=== PATIENT | female | born 1985 ===

== ENCOUNTER 2017-02-15 12:43 | Emergency (ER) | payer MEDICAID ==
[2017-02-15 12:43] VITALS: BMI 21.9
[2017-02-15 12:49] VITALS: BP 118/72; PULSE 67; RESP 20; TEMP 97.7; O2SAT 98
--- NOTE | 2017-02-15 13:53 | ED PDOC ---
HPI: Skin/Bite Injury Time Seen by Provider: 02/15/17 12:47 Chief Complaint (Nursing): Abnormal Skin Integrity Chief Complaint (Provider): Rash History Per: Patient History/Exam Limitations: no limitations Onset/Duration Of Symptoms: Days (x2 weeks) Current Symptoms Are (Timing): Still Present Location Of Injury: Right: Arm (forearm, medial upper arm) Quality Of Symptoms: Itching Severity: Moderate Additional Complaint(s): Korey Harley is a 32 year old female, with no pertinent past medical history, who presents to the ED on 02/15/17 for the evaluation of a moderately pruritic rash on her right upper and right forearm that she has experienced over the past 2 weeks. Denies fever/chills. Patient reports having used Clotramizole cream x1 week with moderate relief, but that rash had returned after she had ceased applying it to the affected areas; prompting ED visit. PMD: none Past Medical History Reviewed: Historical Data, Nursing Documentation, Vital Signs Vital Signs: Last Vital Signs Temp 97.7 F 02/15/17 12:46 Pulse 67 02/15/17 12:46 Resp 20 02/15/17 12:46 BP 118/72 02/15/17 12:46 Pulse Ox 98 02/15/17 12:46 - Medical History PMH: No Chronic Diseases Denies: Chronic Kidney Disease - Surgical History Other surgeries: D&C - Family History Family History: States: Unknown Family Hx - Social History Current smoker - smoking cessation education provided: Yes (light (<10 cigarettes/day)) Alcohol: Social Drugs: Denies - Home Medications Home Medications: Ambulatory Orders Medication Instructions Recorded DiphenhydrAMINE [Benadryl] 25 mg PO Q8H PRN 5 Days 05/24/16 Prednisone 20 mg PO BID 5 Days 05/24/16 Terbinafine HCl [Antifungal] 1 applic TP BID #1 bottle 02/15/17 - Allergies Allergies/Adverse Reactions: Allergies Allergy/AdvReac Type Severity Reaction Status Date / Time No Known Allergies Allergy Verified 05/24/16 08:13 Review of Systems Constitutional: Negative for: Fever, Chills Skin: Positive for: Rash (right upper and forearm, pruritic) Physical Exam - Reviewed Nursing Documentation Reviewed: Yes Vital Signs Reviewed: Yes - Physical Exam Appears: Positive for: Non-toxic, No Acute Distress Skin: Positive for: Normal Color, Warm, Dry, Rash (2 quarter sized erythematous plaques with central scaling noted on right ventral forearm (x1) and medial aspect of right upper arm (x1); no vesicles or surrounding erythema) Neurologic/Psych: Positive for: Alert, Oriented - ECG O2 Sat by Pulse Oximetry: 98 (RA) Pulse Ox Interpretation: Normal Medical Decision Making Medical Decision Makin:47 Initial Impression: tinea corporis 13:40 Patient is medically stable and requires no further treatment in the ED at this time. Patient will be discharged home with Rx for Terbinafine HCl. Counseling was provided and all questions were answered regarding diagnosis and there is agreement to discharge plan. Return if symptoms persist or worsen. Clinical Impression: tinea corporis Scribe Attestation: Documented by Joyce Miller, acting as a scribe for Abilio Vinson PA-C. Provider Scribe Attestation: All medical record entries made by the Scribe were at my direction and personally dictated by me. I have reviewed the chart and agree that the record accurately reflects my personal performance of the history, physical exam, medical decision making, and the department course for this patient. I have also personally directed, reviewed, and agree with the discharge instructions and disposition. Disposition - Clinical Impression Clinical Impression: Tinea corporis - Patient ED Disposition Is Patient to be Admitted: No Counseled Patient/Family Regarding: Diagnosis, Rx Given - Disposition Referrals: [facility] [Outside] Disposition: Routine/Home Disposition Time: 13:40 Condition: STABLE Prescriptions: Terbinafine HCl [Antifungal] 1 applic TP BID #1 bottle Instructions: Tinea Corporis (ED) Print Language: OCCITAN
== END 2017-02-15 13:53 | disposition home or self-care (01) ==
LOC: H.ER 12:43
DX: B35.4 Tinea corporis (principal); R21 Rash and other nonspecific skin eruption

== ENCOUNTER 2017-10-27 15:25 | Emergency (ER) | payer MEDICAID ==
[2017-10-27 15:35] VITALS: BP 103/68; PULSE 74; RESP 16; TEMP 96; O2SAT 100; BMI 22.4
--- NOTE | 2017-10-27 15:47 | ED PDOC ---
HPI: Headache Time Seen by Provider: 10/27/17 15:43 Chief Complaint (Nursing): Headache Chief Complaint (Provider): Headache History Per: Patient Onset/Duration Of Symptoms: Days (x 3) Current Symptoms Are (Timing): Still Present Additional Complaint(s): Korey is a 32 year old female who presents to the Emergency Department complaining of headache for 3 days. Patient states she hit her head on a bathtub. States she has headache all over her head. Has experienced dizziness. Admits to taking Advil for headache. Denies vomiting. PMD: [facility] Past Medical History Reviewed: Historical Data, Nursing Documentation, Vital Signs Vital Signs: Last Vital Signs Temp 96.0 F L 10/27/17 15:34 Pulse 74 10/27/17 15:34 Resp 16 10/27/17 15:34 BP 103/68 10/27/17 15:34 Pulse Ox 100 10/27/17 15:34 - Medical History PMH: No Chronic Diseases Denies: Chronic Kidney Disease - Surgical History Surgical History: No Surg Hx - Family History Family History: States: Unknown Family Hx - Immunization History Hx Tetanus Toxoid Vaccination: Yes Hx Influenza Vaccination: Yes Hx Pneumococcal Vaccination: Yes - Home Medications Home Medications: Ambulatory Orders Medication Instructions Recorded Methylprednisolone [Medrol Dose 1 kit PO . DIRECTED #21 packet 03/10/17 Pack (21 tabs)] Stavudine [Zerit] 1 tab PO DAILY #20 cap 03/10/17 Meclizine [Meclizine*] 25 mg PO Q6 PRN #20 tab 10/27/17 Ondansetron ODT [Zofran ODT] 4 mg PO Q8 PRN #8 odt 10/27/17 - Allergies Allergies/Adverse Reactions: Allergies Allergy/AdvReac Type Severity Reaction Status Date / Time No Known Allergies Allergy Verified 03/10/17 09:47 Review of Systems ROS Statement: Except As Marked, All Systems Reviewed And Found Negative Neurological: Positive for: Headache, Dizziness Physical Exam - Reviewed Nursing Documentation Reviewed: Yes Vital Signs Reviewed: Yes - Physical Exam Appears: Positive for: Non-toxic Head Exam: Positive for: ATRAUMATIC, NORMAL INSPECTION, NORMOCEPHALIC Skin: Positive for: Normal Color Eye Exam: Positive for: Normal appearance Cardiovascular/Chest: Positive for: Regular Rate, Rhythm Extremity: Positive for: Normal ROM Neurologic/Psych: Positive for: Alert, Oriented (x 3), Gait (Steady). Negative for: Other (nystagmus) Comments: Positive for: Finger to Nose Intact, Equal Strength Upper and Lower Extremities - Laboratory Results Urine POC: Negative - ECG O2 Sat by Pulse Oximetry: 100 (RA) Pulse Ox Interpretation: Normal - Progress ED Course And Treament: head ct: nad antivert 25 mg x 1 dose Medical Decision Making Medical Decision Making: Time: 15:04 Plan: - CT Head Without Contrast - Antivert 25 mg PO Time: 8 CT Head W/O Contrast FINDINGS: IMPRESSION: - Normal CT of the Head Time: 1727 - Discussed results with patient. Scribe Attestation: Documented by Mac Cassidy, acting as a scribe for Heather Muniz PA-C Provider Scribe Attestation: All medical record entries made by the Scribe were at my direction and personally dictated by me. I have reviewed the chart and agree that the record accurately reflects my personal performance of the history, physical exam, medical decision making, and the department course for this patient. I have also personally directed, reviewed, and agree with the discharge instructions and disposition. Disposition - Clinical Impression Clinical Impression: Post concussion syndrome - Patient ED Disposition Is Patient to be Admitted: No - Disposition Disposition: Routine/Home Disposition Time: 17:31 Condition: FAIR Prescriptions: Meclizine [Meclizine*] 25 mg PO Q6 PRN #20 tab PRN Reason: Dizziness Ondansetron ODT [Zofran ODT] 4 mg PO Q8 PRN #8 odt PRN Reason: Nausea/Vomiting Instructions: Vertigo (ED), Post Concussion Syndrome (ED) Forms: [employer] (Spanish)
--- NOTE | 2017-10-27 17:00 | CT ---
PROCEDURE: CT HEAD WITHOUT CONTRAST. HISTORY: head trauma COMPARISON: None available. TECHNIQUE: Axial computed tomography images were obtained through the head/brain without intravenous contrast. Radiation dose: Total exam DLP = mGy-cm. This CT exam was performed using one or more of the following dose reduction techniques: Automated exposure control, adjustment of the mA and/or kV according to patient size, and/or use of iterative reconstruction technique. FINDINGS: HEMORRHAGE: No intracranial hemorrhage. BRAIN: No mass effect or edema. No atrophy or chronic microvascular ischemic changes. VENTRICLES: Unremarkable. No hydrocephalus. CALVARIUM: Unremarkable. PARANASAL SINUSES: Unremarkable as visualized. No significant inflammatory changes. MASTOID AIR CELLS: Unremarkable as visualized. No inflammatory changes. OTHER FINDINGS: None. IMPRESSION: Normal CT of the Head.
== END 2017-10-27 17:35 | disposition home or self-care (01) ==
LOC: H.ER 15:25
DX: F07.81 Postconcussional syndrome (principal); W19.XXXA Unspecified fall, initial encounter; Y92.002 Bathroom of unspecified non-institutional (private) residence as the place of occurrence of the external cause

== ENCOUNTER 2018-06-02 09:30 | Emergency (ER) | payer MEDICAID ==
[2018-06-02 09:36] VITALS: BMI 22.4
[2018-06-02 09:37] VITALS: RESP 16; TEMP 98
[2018-06-02 11:01] LABS: BASO % 0.6 % (0.0-2.0); EOS # 0.3 K/uL (0.0-0.7); EOS % 3.7 % (0.0-4.0); HEMOGLOBIN 12.6 g/dL (12.0-16.0); LYMPH # 1.4 K/uL (1.0-4.3); LYMPH % 19.5 % (20.0-40.0); MEAN CELL VOLUME 86.5 fl (81.0-99.0); MEAN CORPUSCULAR HEMOGLOBIN 28.6 pg (27.0-31.0); MEAN PLATELET VOLUME 8.8 fl (7.2-11.7); MONO # 0.5 K/uL (0.0-0.8); MONO % 6.6 % (0.0-10.0); NEUT # 4.8 K/uL (1.8-7.0); NEUT % 69.6 % (50.0-75.0); RBC 4.4 Mil/uL (3.80-5.20); RED CELL DISTRIBUTION WIDTH 15.1 % (11.5-14.5); WHITE BLOOD COUNT 6.9 K/uL (4.8-10.8)
[2018-06-02 11:14] LABS: ALB/GLOB RATIO 1.2 (1.0-2.1); ALBUMIN 4.3 g/dL (3.5-5.0); ALT/SGPT 27 U/L (9-52); AST/SGOT 25 U/L (14-36); BLOOD UREA NITROGEN 11 mg/dl (7-17); CALCIUM 9.1 mg/dL (8.4-10.2); GFR AFRICAN-AMERICAN > 60; GFR NON-AFRICAN AMERICAN > 60
[2018-06-02 11:16] LABS: URINE BILIRUBIN NEGATIVE (NEGATIVE); URINE BLOOD NEGATIVE (NEGATIVE); URINE CLARITY SLIGHTY-CLOUDY (Clear); URINE COLOR YELLOW (YELLOW); URINE GLUCOSE (UA) NEG (Normal); URINE LEUKOCYTE ESTERASE NEG Leu/uL (Negative); URINE PROTEIN NEGATIVE (NEGATIVE); URINE UROBILINOGEN 0.2-1.0 mg/dL (0.2-1.0)
--- NOTE | 2018-06-02 12:41 | ED PDOC ---
HPI: Chest Pain Time Seen by Provider: 06/02/18 10:20 Chief Complaint (Nursing): Chest Pain Chief Complaint (Provider): Chest Pain History Per: Patient History/Exam Limitations: no limitations Onset/Duration Of Symptoms: Days (21) Additional Complaint(s): 33 years old female with history of Trichomoniasis and bacterial vaginosis presents to the ED for intermittent left sided chest pain radiates to left arm onset 3 weeks. Patient reports she has not seen a doctor or attempted to take medications. She states pain resolves on its own. Patient reports yellowish vaginal discharge started a week ago. states she is sexually active w one partner. She denies any fever, vomiting abd pain or diaphoresis. PMD: [facility] Past Medical History Reviewed: Historical Data, Nursing Documentation, Vital Signs Vital Signs: Last Vital Signs Temp 98 F 06/02/18 09:36 Pulse 85 06/02/18 14:37 Resp 16 06/02/18 14:37 BP 105/66 06/02/18 14:37 Pulse Ox 100 06/02/18 15:05 - Medical History PMH: Denies: Chronic Kidney Disease Other PMH: Trichomoniasis - Surgical History Other surgeries: Tubal ligation - Family History Family History: States: Unknown Family Hx - Social History Current smoker - smoking cessation education provided: Yes (2 cigarettes daily) Alcohol: Occasional Drugs: Denies - Immunization History Hx Tetanus Toxoid Vaccination: No Hx Influenza Vaccination: No Hx Pneumococcal Vaccination: No - Home Medications Home Medications: Ambulatory Orders Medication Instructions Recorded Oseltamivir [Tamiflu] 75 mg PO BID #9 cap 01/01/18 Metronidazole [Flagyl] 500 mg PO BID #14 tablet 06/02/18 - Allergies Allergies/Adverse Reactions: Allergies Allergy/AdvReac Type Severity Reaction Status Date / Time No Known Allergies Allergy Verified 06/02/18 09:40 OLUISE Risk Score for UA/NSTEMI - LOUISE Risk Score Age > 64: NO 3 or more CAD Risk Factors: NO Known CAD (Stenosis greater than 50%): NO Aspirin use in past 7 days: NO Severe Angina: NO EKG ST changes greater than 0.5mm: NO Positive Cardiac Marker: NO LOUISE Score: 0 Risk %: 5% Curb-65 Severity Score - CURB-65 Severity Score Confusion: No Bun >19mg/dl (>7mmol/L): No Respiratory Rate greater than/equal to 30: No Systolic BP <90 or Diastolic BP less than/equal 60mmHg: No Age >64: No Curb-65 Score: 0 Percentage 30-day mortality: 0.6% Wells Criteria for PE - Wells Criteria for Pulmonary Embolism Clinical Signs and Symptoms of DVT: No P.E is #1 Diagnosis, or Equally Likely: No Heart Rate >100: No Immobilization at least 3 days;Surgery previous 4 weeks: No Previous, objectively diagnosed PE or DVT: No Hemoptysis: No Malignancy w/treatment within 6 months, or palliative: No Total Score: 0 Review of Systems ROS Statement: Except As Marked, All Systems Reviewed And Found Negative Constitutional: Negative for: Fever, Sweats Cardiovascular: Positive for: Chest Pain (Left sided) Genitourinary Female: Positive for: Vaginal Discharge (Yellowish) Musculoskeletal: Positive for: Arm Pain (left sided) Physical Exam - Reviewed Nursing Documentation Reviewed: Yes Vital Signs Reviewed: Yes - Physical Exam Appears: Positive for: Non-toxic, No Acute Distress Head Exam: Positive for: ATRAUMATIC, NORMOCEPHALIC Skin: Positive for: Normal Color, Warm, Dry Eye Exam: Positive for: Normal appearance ENT: Positive for: Normal ENT Inspection Neck: Positive for: Normal, Painless ROM, Supple Cardiovascular/Chest: Positive for: Regular Rate, Rhythm. Negative for: Murmur Respiratory: Positive for: Normal Breath Sounds. Negative for: Wheezing, Respiratory Distress Gastrointestinal/Abdominal: Positive for: Normal Exam, Soft. Negative for: Tenderness Back: Positive for: Normal Inspection. Negative for: L CVA Tenderness, R CVA Tenderness Extremity: Positive for: Normal ROM. Negative for: Deformity, Swelling Neurologic/Psych: Positive for: Alert, Oriented - Laboratory Results Result Diagrams: 06/02/18 10:52 06/02/18 10:52 - ECG O2 Sat by Pulse Oximetry: 100 (RA) Pulse Ox Interpretation: Normal Medical Decision Making Medical Decision Making: Time: 1052 Initial Impression: Chest pain (chronic), vaginal discharge r/o infection Initial Plan: --Chest X-Ray --Urine C&S 1305 Chest X-Ray FINDINGS: LUNGS: No active pulmonary disease. PLEURA: No significant pleural effusion identified, no pneumothorax apparent. CARDIOVASCULAR: Normal. OSSEOUS STRUCTURES: No significant abnormalities. VISUALIZED UPPER ABDOMEN: Normal. OTHER FINDINGS: None. IMPRESSION: No active disease. 1310 Pelvic exam was done in the presence of the nurse ron as the solutions market consultant. there was a whitish discharge. no pruritis reported by patient likely c/w Bacterial vaginosis. as far as chest pain, workup negative pt instructed to follow up w her doctor, dr higginbotham ----- Scribe Attestation: Documented by Shauna Serrano, acting as a scribe for Jaimie Allen MD. Provider Scribe Attestation: All medical record entries made by the Scribe were at my direction and personally dictated by me. I have reviewed the chart and agree that the record accurately reflects my personal performance of the history, physical exam, medical decision making, and the department course for this patient. I have also personally directed, reviewed, and agree with the discharge instructions and disposition. Disposition - Clinical Impression Clinical Impression: Chest pain, Vaginal discharge - Patient ED Disposition Is Patient to be Admitted: No Counseled Patient/Family Regarding: Studies Performed, Diagnosis, Need For Followup - Disposition Referrals: [facility] [Outside] Disposition: Routine/Home Disposition Time: 13:25 Condition: IMPROVED Additional Instructions: follow up with your primary doctor and cartridge maker in 1-2 days for further testing return to the ED with any worsening or concerning symptoms Prescriptions: Metronidazole [Flagyl] 500 mg PO BID #14 tablet Instructions: Chest Pain, Bacterial Vaginosis (DC) Forms: [employer] (Greek)
--- NOTE | 2018-06-02 13:07 | RAD ---
HISTORY: chest pain COMPARISON: 01/18/2011 FINDINGS: LUNGS: No active pulmonary disease. PLEURA: No significant pleural effusion identified, no pneumothorax apparent. CARDIOVASCULAR: Normal. OSSEOUS STRUCTURES: No significant abnormalities. VISUALIZED UPPER ABDOMEN: Normal. OTHER FINDINGS: None. IMPRESSION: No active disease.
[2018-06-02 14:38] VITALS: BP 105/66; PULSE 85
[2018-06-02 15:05] VITALS: O2SAT 100
== END 2018-06-02 14:39 | disposition home or self-care (01) ==
LOC: H.ER 09:30
DX: R07.89 Other chest pain (principal); B96.89 Other specified bacterial agents as the cause of diseases classified elsewhere

== ENCOUNTER 2018-09-22 09:01 | Emergency (ER) | payer MEDICAID ==
[2018-09-22 09:15] VITALS: O2SAT 100; BMI 20.7
[2018-09-22] MEDS ORDERED: Lidocaine 1% Inj (20ml) IJ STA (09:16)
[2018-09-22] MEDS ORDERED: Oxycodone/Acetaminophen 5/325 mg Tab PO STA (09:27)
[2018-09-22 10:15] LABS: SQUAMOUS EPITHIAL 2 /hpf (0-5); URINE BILIRUBIN NEGATIVE (NEGATIVE); URINE BLOOD SMALL (NEGATIVE); URINE CLARITY CLOUDY (Clear); URINE COLOR YELLOW (YELLOW); URINE GLUCOSE (UA) NEG (Normal); URINE LEUKOCYTE ESTERASE NEG Leu/uL (Negative); URINE PROTEIN 30 mg/dL (NEGATIVE); URINE UROBILINOGEN 0.2-1.0 mg/dL (0.2-1.0)
--- NOTE | 2018-09-22 10:20 | ED PDOC ---
HPI: Female Pain Time Seen by Provider: 09/22/18 09:16 Chief Complaint (Nursing): Female Genitourinary Chief Complaint (Provider): Female Genitourinary History Per: Patient History/Exam Limitations: no limitations Onset/Duration Of Symptoms: Days (x2 weeks) Additional Complaint(s): Korey Harley is a 33 year old female with no past medical history, who presents to the emergency department for worsening dysuria and suprapubic pain, associated with nausea, onset x2 weeks. Patient states she felt febrile last night and that the pain radiated to back and left abdomen. She reports that the symptoms are similar to the UTI she had in the past years ago. There was no noticeable blood in the urine and patient denies having any vomiting. PMD: [facility] Past Medical History Reviewed: Historical Data, Nursing Documentation, Vital Signs Vital Signs: Last Vital Signs Temp 97.3 F L 09/22/18 09:14 Pulse 87 09/22/18 09:14 Resp 16 09/22/18 09:14 BP 125/79 09/22/18 09:14 Pulse Ox 100 09/22/18 09:14 - Medical History PMH: No Chronic Diseases Denies: Chronic Kidney Disease - Surgical History Surgical History: No Surg Hx - Family History Family History: States: Unknown Family Hx - Immunization History Hx Tetanus Toxoid Vaccination: No Hx Influenza Vaccination: No Hx Pneumococcal Vaccination: No - Home Medications Home Medications: Ambulatory Orders Medication Instructions Recorded RX: No Known Home Med 09/22/18 - Allergies Allergies/Adverse Reactions: Allergies Allergy/AdvReac Type Severity Reaction Status Date / Time No Known Allergies Allergy Verified 09/22/18 09:22 Review of Systems ROS Statement: Except As Marked, All Systems Reviewed And Found Negative Constitutional: Positive for: Fever Gastrointestinal: Positive for: Nausea, Abdominal Pain (left sided and suprapubic). Negative for: Vomiting Genitourinary Female: Positive for: Dysuria (worsening ). Negative for: Hematuria Musculoskeletal: Positive for: Back Pain Physical Exam - Reviewed Nursing Documentation Reviewed: Yes Vital Signs Reviewed: Yes - Physical Exam Appears: Positive for: Non-toxic, No Acute Distress Head Exam: Positive for: ATRAUMATIC, NORMOCEPHALIC Skin: Positive for: Normal Color, Warm, Dry Eye Exam: Positive for: Normal appearance, EOMI, PERRL ENT: Positive for: Normal ENT Inspection Neck: Positive for: Normal, Painless ROM, Supple Cardiovascular/Chest: Positive for: Regular Rate, Rhythm. Negative for: Murmur Respiratory: Positive for: Normal Breath Sounds. Negative for: Respiratory Distress Gastrointestinal/Abdominal: Positive for: Tenderness (suprapubic) Back: Positive for: L CVA Tenderness (Worse than right), R CVA Tenderness Extremity: Positive for: Normal ROM. Negative for: Pedal Edema, Deformity Neurologic/Psych: Positive for: Alert, Oriented (x3). Negative for: Motor/Sensory Deficits - ECG O2 Sat by Pulse Oximetry: 100 (RA) Pulse Ox Interpretation: Normal Medical Decision Making Medical Decision Making: Initial Time: 09:38 A/P: Work up for UTI and pyelonephritis Patient was given Motrin and Pyridium for pain. Plan: --Motrin tab 600 mg PO --Pyridium 100 mg PO --Urinalysis Time: 11:10 Patient has normal Urinalysis. Upon further discussion with patient, she states she has been trying to see a finish patcher for increased vaginal bleeding. She states there is no foul smell or vaginal pain. Patient reports that she has been unable to see specialist. Patient will get US of pelvis as well as a vaginal exam with cultures and reevaluations. --------- Scribe Attestation: Documented by Tahir Ramírez, acting as a scribe for Siomara Landin MD. Provider Scribe Attestation: All medical record entries made by the Scribe were at my direction and personally dictated by me. I have reviewed the chart and agree that the record a ccurately reflects my personal performance of the history, physical exam, medical decision making, and the department course for this patient. I have also personally directed, reviewed, and agree with the discharge instructions and disposition. Pelvic exam shows vaginal discharge without bleeding. Cultures sent. Treatment for bacterial vaginitis in the ED. Referral to gynecology. Return parameters discussed. Disposition - Clinical Impression Clinical Impression: Female genitourinary symptoms - Disposition [facility] [[facility]] Disposition: Routine/Home Disposition Time: 13:45 Condition: IMPROVED Additional Instructions: You have been treated for vaginal trichomonas today in the emergency department therefore will not need a prescription. If you cultures show growth of another source of infection, you will be contacted and prescription will be provided. Follow up in the clinic as needed. IF you develop worsened pain, fever, or other new symptoms, please return to the emergency department. Forms: [employer] ([employer]) Print Language: CITIZEN OF [place]
--- NOTE | 2018-09-22 15:29 | US ---
Date of service: 09/22/2018 HISTORY: left sided and suprapubic pain COMPARISON: None available. TECHNIQUE: Transabdominal FINDINGS: UTERUS: Measures 10.0 x 5.1 x 3.3 cm. Normal in size and appearance. No fibroid or other mass lesion seen. ENDOMETRIUM: Measures 4 mm in diameter. Unremarkable. CERVIX: No cervical abnormality identified. RIGHT OVARY: Measures 2.9 x 3.1 x 1.8 cm. No solid mass. Normal flow. LEFT OVARY: Measures 3.4 x 2.8 x 1.8 cm. No solid mass. Normal flow. FREE FLUID: No significant free fluid noted. OTHER FINDINGS: None. IMPRESSION: Unremarkable pelvic ultrasound.
[2018-09-22 15:47] VITALS: BP 122/74; PULSE 71; RESP 15; TEMP 98.1
== END 2018-09-22 16:05 | disposition home or self-care (01) ==
LOC: H.ER 09:01
DX: R30.0 Dysuria (principal); N76.0 Acute vaginitis; N89.8 Other specified noninflammatory disorders of vagina

== ENCOUNTER 2018-11-16 01:47 | Emergency (ER) | payer MEDICAID ==
[2018-11-16 02:09] VITALS: BMI 21.2
[2018-11-16 02:11] VITALS: TEMP 98.6; O2SAT 96
[2018-11-16] MEDS ORDERED: DiphenhydrAMINE 50 mg/ml Inj IM STA (02:53)
--- NOTE | 2018-11-16 03:44 | ED PDOC ---
HPI: Allergic Reaction Time Seen by Provider: 11/16/18 02:11 Chief Complaint (Nursing): Abdominal Pain History Per: Patient History/Exam Limitations: no limitations Onset/Duration Of Symptoms: Hrs Current Symptoms Are (Timing): Still Present Additional Complaint(s): No PMHx presenting with allergic reaction. States that 45 minutes prior to arrival she woke up with an itching sensation to her skin, states she had "hives" all over her body. States that she took benadryl and then felt abdominal pain and vomited x 1 afterwards, food colored. States her stomach feels unsettled still and has some R sided abdominal pain. STates she threw up 5 minutes after taking the benadryl and does not think that she absorbed it because she is still feeling itchy. Denies fevers, chills, urinary symptoms. Patient also states she has nasal congestion and a hard time breathing through her nose. Past Medical History Reviewed: Historical Data, Nursing Documentation, Vital Signs Vital Signs: Last Vital Signs Temp 98.6 F 11/16/18 02:09 Pulse 100 H 11/16/18 02:09 Resp 18 11/16/18 02:09 BP 120/81 11/16/18 02:09 Pulse Ox 96 11/16/18 02:09 - Medical History PMH: No Chronic Diseases Denies: Chronic Kidney Disease - Family History Family History: States: Unknown Family Hx - Immunization History Hx Tetanus Toxoid Vaccination: No Hx Influenza Vaccination: No Hx Pneumococcal Vaccination: No - Home Medications Home Medications: Ambulatory Orders Medication Instructions Recorded Fluticasone Propionate [Flonase] 1 spr NS DAILY #1 bottle 11/16/18 - Allergies Allergies/Adverse Reactions: Allergies Allergy/AdvReac Type Severity Reaction Status Date / Time No Known Allergies Allergy Verified 11/16/18 02:08 Review of Systems ROS Statement: Except As Marked, All Systems Reviewed And Found Negative Gastrointestinal: Positive for: Nausea, Vomiting, Abdominal Pain Genitourinary Female: Negative for: Dysuria, Frequency Skin: Positive for: Rash Physical Exam - Reviewed Nursing Documentation Reviewed: Yes Vital Signs Reviewed: Yes - Physical Exam Appears: Positive for: Well, Non-toxic, No Acute Distress Head Exam: Positive for: ATRAUMATIC, NORMAL INSPECTION, NORMOCEPHALIC Skin: Positive for: Normal Color, Warm, DRY Eye Exam: Positive for: EOMI, Normal appearance, PERRL ENT: Positive for: Normal ENT Inspection Neck: Positive for: Normal, Painless ROM Cardiovascular/Chest: Positive for: Regular Rate, Rhythm Respiratory: Positive for: CNT, Normal Breath Sounds Gastrointestinal/Abdominal: Positive for: Normal Exam, Soft. Negative for: Tenderness Back: Positive for: Normal Inspection Extremity: Positive for: Normal ROM Neurologic/Psych: Positive for: Alert, Oriented - ECG O2 Sat by Pulse Oximetry: 96 Pulse Ox Interpretation: Normal - Progress ED Course And Treament: 200AM Patient presenting with allergic reaction, itching, abdominal pain --Patient is very comfortable with normal exam, no RLQ tenderness, itching at her skin --Not concerned for appendicits, ovarian torsion, or other acute intra-abdominal pathology --Will treat with benadryl and saline nebulizer --Will continue to monitor 430AM --Patient is feeling much better --No longer complaining of itching or abdominal pain --Advised patient to followup with PMD --Return precautions given Disposition - Clinical Impression Clinical Impression: Allergic reaction - Disposition Referrals: Adam Doss MD [Family Provider] - Disposition: Routine/Home Disposition Time: 04:30 Condition: GOOD Prescriptions: Fluticasone Propionate [Flonase] 1 spr NS DAILY #1 bottle Instructions: Hives, Cough, Runny Nose, and the Common Cold Forms: [facility] (Chinese)
[2018-11-16 04:59] VITALS: BP 126/75; PULSE 85; RESP 20
== END 2018-11-16 05:00 | disposition home or self-care (01) ==
LOC: H.ER 01:47
DX: T78.40XA Allergy, unspecified, initial encounter (principal)
CPT/HCPCS: 81025; 96372; 99283; J1200